=== PATIENT | female | born 1950 | race Caucasian/White ===

== ENCOUNTER → 2017-11-19 | Outpatient (CLI) | payer BC ==
--- NOTE | 2017-11-19 08:56 | DIAGNOSTIC IMAGING REPORT ---
CHEST 2 VIEWS ROUTINE CLINICAL HISTORY: 67 years-old Female presenting with Z85.3,I11.9,E78.00 routine follow-up to pneumonia, possible "spot" on lung. TECHNIQUE: PA and lateral views of the chest were obtained. COMPARISON: None. FINDINGS: Cardiomediastinal silhouette normal. Lungs and pleural spaces clear. Osseous structures normal. Cholecystectomy clips noted. Left axilla surgical clips. IMPRESSION: 1. No acute cardiopulmonary disease. 2. No evidence of pulmonary nodule allowing for the extremely limited sensitivity of radiography. If there is a history of pulmonary nodule, chest CT should be obtained. Additionally, if prior exams become available, an addendum can be issued. Electronically signed by: Placido Amaya M.D. 11/19/2017 8:54 AM Dictated Date/Time: 11/19/2017 8:53 AM
== END | disposition home or self-care (01) ==
LOC: C.RAD 08:31
DX: I11.9 Hypertensive heart disease without heart failure (principal); E78.00 Pure hypercholesterolemia, unspecified; Z85.3 Personal history of malignant neoplasm of breast

== ENCOUNTER → 2017-12-15 | Outpatient (CLI) | payer BC | END | disposition home or self-care (01) | LOC: C.LABMFLN 08:44 | DX: T14.8XXA Other injury of unspecified body region, initial encounter (principal); W57.XXXA Bitten or stung by nonvenomous insect and other nonvenomous arthropods, initial encounter ==